=== PATIENT | male | born 1955 | race Caucasian/White ===

== ENCOUNTER 2017-07-21 10:40 | Day surgery (SDC) | payer BC ==
[~2017-07-21 10:40] MED LIST: ACETAMINOPHEN 1,000 MG/100 ML BTL IV ONE; CEFAZOLIN 2 Gram 2 GM/50 ML BAG IVPB ONE; FAMOTIDINE 20MG TABLET PO ONE; MECLIZINE 25 MG TABLET PO ONE; METOCLOPRAMIDE 10 MG TABLET PO ONE
[2017-07-21] MEDS ORDERED: KETOROLAC 30 MG/ML VIAL IVP ONE (10:41)
[2017-07-21] MEDS ORDERED: METHYLPREDNISOLONE 40MG/VIAL IM ONE (10:41)
[2017-07-21] MEDS ORDERED: MIDAZOLAM HCL 2MG/2ML VIAL IV ONE (10:41)
[2017-07-21] MEDS ORDERED: VANCOMYCIN HCL 1 GM VIAL IVPB ONE (10:41)
[2017-07-21] MEDS ORDERED: SEVOFLURANE 250 ML INH ONE (10:41)
[2017-07-21] MEDS ORDERED: EPHEDRINE SULFATE 50 MG/ML ML IV ONE (10:41)
[2017-07-21] MEDS ORDERED: PROPOFOL 10 MG/ML VIAL IV ONE (10:41)
[2017-07-21] MEDS ORDERED: DEXAMETHASONE 4 MG/ML 1ML VIAL IVP ONE (10:41)
[2017-07-21] MEDS ORDERED: MORPHINE SULFATE PF 10MG/10ML VIAL IV ONE (10:41)
[2017-07-21] MEDS ORDERED: LIDOCAINE 2% MDV (20MG/ML) 20ML VIAL IV ONE (10:41)
[2017-07-21] MEDS ORDERED: PHENYLEPHRINE HCL 10 MG/ML VIAL IVP ONE (10:41)
[2017-07-21] MEDS ORDERED: FENTANYL PF 100MCG/2ML VIAL IV ONE (10:41)
[2017-07-21] MEDS ORDERED: ROPIVACAINE HCL (NAROPIN) /PF 5MG/ML 20ML VIAL IV ONE (10:41)
[2017-07-21] MEDS ORDERED: BUPIVACAINE 0.75% W/EPI MPF 30ML VIAL IVP ONE (10:41)
[2017-07-21 11:10] LABS: EOS % 4.3 % (0-6); GRAN % 65.7 % (47-80); HEMATOCRIT 46.8 % (42.0-52.0); HEMOGLOBIN 15.8 gm/dl (14.0-18.0); LYMPH % 18.2 % (16-45); MEAN CELL VOLUME 95.1 fl (81-97); MEAN CORPUSCULAR HEMOGLOBIN 32.1 pg (27-33); MEAN CORPUSCULAR HGB CONC 33.8 g/dl (32-36); MEAN PLATELET VOLUME 9.7 fl (7.4-10.4); MONO % 10.8 % (0-9); PLATELET COUNT 436 K/uL (130-400); RED BLOOD COUNT 4.92 M/uL (4.40-5.70); RED CELL DISTRIBUTION WIDTH 13.2 % (11.5-14.5); WHITE BLOOD COUNT W/O DIFF 10.6 K/uL (4.2-12.2)
[2017-07-21 11:23] LABS: BLOOD UREA NITROGEN 17 mg/dL (8-23); CREATININE 0.7 mg/dL (0.7-1.2); EST GLOMERULAR FILTRATION RATE > 60 mL/min; GLUCOSE,RANDOM 152 mg/dL (74-109)
--- NOTE | 2017-07-22 16:51 | Operative Note ---
DATE OF SURGERY: 07/21/2017 PREOPERATIVE DIAGNOSIS: RIGHT SHOULDER IMPINGEMENT, QUESTION TEAR OF THE ROTATOR CUFF. POSTOPERATIVE DIAGNOSES: 1. 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 2. DIFFUSE SYNOVITIS, RIGHT SHOULDER. 3. PROFOUND EXTERNAL IMPINGEMENT, RIGHT SHOULDER. 4. ADVANCED ARTHROSIS, RIGHT DISTAL CLAVICLE. PROCEDURE: 1. REPAIR OF A CHRONICALLY TORN ROTATOR CUFF TEAR ON THE RIGHT. 2. RIGHT SHOULDER ARTHROSCOPY WITH SYNOVECTOMY. 3. RIGHT SHOULDER OPEN ACROMIOPLASTY. CA LIGAMENT RESECTION SUBACROMIAL BURSECTOMY. 4. RIGHT SHOULDER DISTAL CLAVICLE RESECTION. STAFF SURGEON: LUIS MANUEL KAT M.D. ANESTHESIA: GENERAL. PREPARATION: CHLORAPREP. INDIVIDUAL CONSIDERATIONS: NONE. PROCEDURE: The patient was taken to the Operating Room and placed supine on the operating table. He had a successful induction of a general anesthetic. He was then placed in a semi-seated beach chair position and the right arm and shoulder were prepped and draped in the usual fashion. Examination under anesthesia showed no instability. The patient had posterior portal identified for arthroscopy. Skin was infiltrated with 0.50% Marcaine with Epinephrine prior. An #18-gauge spinal needle was easily placed in the joint and the joint was inflated with normal saline with a 60 mL syringe. A stab wound was made and a blunt-tipped trocar for the scope was placed in the joint and the joint was inflated with normal saline. An anterior accessory portal was made through the area just inferior to the long head of the biceps tendon, which was absent. This was done in a retrograde fashion with a Wissinger farzad and the joint was irrigated out. The patient had diffuse synovitis , some grade 3 changes on the humeral head, a large tear of the supraspinatus, the subscap was intact. The long head had long ruptured. There was an unstable stump and lots of synovitis associated with this. A shaver was introduced and this was all debrided out as was the synovitis. No loose bodies were seen inferiorly. I then went again and irrigated out. Arthroscopy instruments were removed and the portals were closed with kae. The patient had an anterior approach to the subacromial space and distal clavicle. The skin was again infiltrated with 0.50% Marcaine with Epinephrine prior. Sharp dissection was carried down through the skin and subcutaneous tissue. Small veins were coagulated with a Bovie. An anterior deltoid interval was developed and care was taken not to split the deltoid more than about 4 cm distal to the anterior tip of the acromion to prevent injury to the axillary nerve. Once in the subacromial space, there was a large caba of fluid consistent with a tear. The deltoid was then taken subperiosteally off the anterior aspect of the acromion, over the top of the intact CA ligament, off the anterior aspect of the highly degenerated distal clavicle. The patient had a large anterior spur and very large spurs extending from the AC joint inferiorly. CA ligament was resected with a Bovie. Distal clavicle was resected with an oscillating saw taking a centimeter. The downsloping acromion and acromioplasty were performed extending to the AC joint tapering to wedge posteromedially using an oscillating saw. The undersurface was smooth with a rasp. He had an extremely thick bursa; some areas were almost a centimeter thick and this was all debrided out and I had a good look at the rotator cuff, which looked basically completely macerated and chewed up. Chewed up would be the best description. The subscapularis was okay but supraspinatus and infraspinatus were chewed up and the teres minor was macerated but intact. I was able to debride off the macerated areas off the supraspinatus and infraspinatus and when I was able to mobilize a large portion of it and bring it to the tuberosity, I took a bur and rongeur and created a trough and put retention sutures into the remaining tendon and then jeremy it into the trough with sutures going through the bone and then tied down distally effecting a decent repair; I was able to repair maybe 80% of it. I touched up the maceration areas with 0 Vicryl, buried knot sutures. After irrigation, I placed the shoulder through a full range of motion to ensure no further impingement. The deltoid, after irrigation, was reattached to the remaining acromion with multiple interrupted #2 Vicryl going directly through the bony acromion. The periosteal cuff and distal clavicle were closed with running #1 Vicryl, the subcut was closed with running 2-0 plus Vicryl, and the skin was closed with kae. 10 mL of 0.50% Marcaine with Epinephrine was injected into the subacromial space through a sterile #18-gauge needle and a sterile Bulkee compressive Aquacel-type dressing was applied. The patient tolerated the procedures well. Needle and sponge counts were correct. Estimated blood loss was minimal and he was taken back to Recovery in good condition. There were no complications. cc: Dr. Hank Isaac JOB NUMBER: [id number] MTDD
== END 2017-07-21 16:45 | disposition home or self-care (01) ==
LOC: SUR 10:40
PROVIDERS: ATTEND Orthopaedic Surgery
DX: M75.121 Complete rotator cuff tear or rupture of right shoulder, not specified as traumatic (principal); M75.41 Impingement syndrome of right shoulder; M65.811 Other synovitis and tenosynovitis, right shoulder; I10 Essential (primary) hypertension; E11.9 Type 2 diabetes mellitus without complications; Z79.84 Long term (current) use of oral hypoglycemic drugs; E78.00 Pure hypercholesterolemia, unspecified
CPT/HCPCS: 29822; 23130; 23412; 01630; 64415; 85025; 80048; 93005; 93010; J1885; J3370; J3010; J0690; J2795; J3490; J1030; J2370